=== PATIENT | female | born 1970 | race Caucasian/White ===

== ENCOUNTER 2016-11-23 20:43 | Emergency (ER) | payer OTHER ==
--- NOTE | 2016-11-23 22:08 | EDM.PDOC ---
ED HPI GENERAL MEDICAL PROBLEM - General Chief Complaint: General Stated Complaint: PT HAS INSOMNIA Time Seen by Provider: 11/23/16 22:03 Source of Information: Reports: Patient History Limitations: Reports: No limitations - History of Present Illness INITIAL COMMENTS - FREE TEXT/NARRATIVE: HISTORY AND PHYSICAL: [] 46-year-old female presenting with concerns patient feels that she may have "worms" she went to the walk-in clinic today he was given a "hat" to obtain stool sample but worried that she's not been able to go. She does have a preop hysteroscopy with Dr. Charles. She has not slept in the last 5 days. History of Present Illness: [ This and has been feeling unwell for some time but states that she is normally a happy person] Review of Systems: As per history of present illness and below otherwise all systems reviewed and negative. Past medical history: As per history of present illness and as reviewed below otherwise noncontributory. Surgical history: As per history of present illness and as reviewed below otherwise noncontributory. Social history: No reported history of drug or alcohol abuse. Family history: As per history of present illness and as reviewed below otherwise noncontributory. Physical exam:Alert female with a flat affect she looks quite tired . HEENT: Atraumatic, normocehpalic, pupils reactive, negative for conjunctival pallor or scleral icterus, mucous membranes moist, throat clear, neck supple, nontender, trachea midline. Lungs: Clear to auscultation, breath sounds equal bilaterally, chest non tender. Heart: S1S2, regular, negative for clicks, rubs, or JVD. Abdomen: Soft, nondistended, tender to palpation of the uterus no rebound and no guarding was noted. Negative for masses or hepatossplenmegaly. Negative for costovertebral tenderness.Abdominal bowel sounds were present . Extremities: Atraumatic, negative for cords or calf pain. Neurovascular unremarkable. No peripheral edema is present. Neuro: Awake, alert, oriented. Cranial nerves II through XII unremarkable. Cerebellum unremarkable. Motor and sensory unremarkable throughout. Exam nonfocal. Diagnostics: [] Therapeutics: [] Impression: [ #1 insomnia #2 worried] Plan: [ Tylenol PM 2 tablets tonight to help you sleep Scott's wort available [id number] per bottle directions Followup as scheduled May use magnesium citrate half a bottle to aid in bowel movement] Definitive disposition and diagnosis as appropriate pending reevaluation and review of above. upper back pain Pain Score (Numeric/FACES): 2 - Related Data Allergies Allergy/AdvReac Type Severity Reaction Status Date / Time cephalexin monohydrate Allergy Anaphylactic Verified 11/23/16 21:03 [From Keflex] Shock Cephalosporins Allergy Anaphylactic Verified 11/23/16 21:03 Shock etanercept [From Enbrel] Allergy Rash Verified 11/23/16 21:03 latex Allergy Rash Verified 11/23/16 21:03 Home Meds: Home Meds Adalimumab [Humira Pen [id number] Starter] 1 injection IM ASDIRECTED 11/16/16 [ History] Ibuprofen 2 tab PO ASDIRECTED PRN 11/16/16 [History] Mild Excedrin 1 tab PO ASDIRECTED PRN 11/16/16 [History] Multivitamin [Multivitamins] 1 tab PO DAILY 11/16/16 [History] diphenhydrAMINE [Benadryl] 1 tab PO TID PRN 11/16/16 [History] Past Medical History HEENT History: Reports: None Cardiovascular History: Reports: Hypertension Other Cardiovascular History: mild HTN, not on medication Respiratory History: Reports: Asthma, Other (see below) Other Respiratory History: asthma as a child Gastrointestinal History: Reports: None Genitourinary History: Reports: None 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: , Spontaneous Musculoskeletal History: Reports: Arthritis Other Musculoskeletal History: psoriatic arthritis (severe stage 8) Neurological History: Reports: None Psychiatric History: Reports: None Endocrine/Metabolic History: Reports: Obesity/BMI 30+ Other Endocrine/Metabolic History: prediabetic, borderline hypothyroidism Hematologic History: Reports: None Dermatologic History: Reports: Psoriasis - Infectious Disease History Infectious Disease History: Reports: None - Past Surgical History Head Surgeries/Procedures: Reports: None HEENT Surgical History: Reports: Tonsillectomy Female Surgical History: Reports: D&C Social & Family History - Family History Family Medical History: Noncontributory Endocrine/Metabolic: Reports: Diabetes, type I Oncologic: Reports: Breast, Renal - Tobacco Use Smoking Status *Q: Never Smoker Second Hand Smoke Exposure: No - Caffeine Use Caffeine Use: Reports: Tea - Recreational Drug Use Recreational Drug Use: No Drug Use in Last 12 Months: No ED ROS GENERAL - Review of Systems Review Of Systems: ROS reveals no pertinent complaints other than HPI. ED EXAM, GENERAL - Physical Exam Exam: See Below (see dictation) Course - Vital Signs Last Recorded V/S: Last Vital Signs Temp 36.1 C 11/23/16 21:03 Pulse 86 11/23/16 21:03 Resp 16 11/23/16 21:03 BP 132/78 11/23/16 21:03 Pulse Ox 98 11/23/16 21:03 Departure - Departure Time of Disposition: 22:09 Disposition: Home, Self-Care 01 Condition: good Clinical Impression: Insomnia Forms: ED Department Discharge Additional Instructions: The following information is given to patients seen in the emergency department who are being discharged to home. This information is to outline your options for follow-up care. We provide all patients seen in our emergency department with a follow-up referral. The need for follow-up, as well as the timing and circumstances, are variable depending upon the specifics of your emergency department visit. If you don't have a primary care physician on staff, we will provide you with a referral. We always advise you to contact your personal physician following an emergency department visit to inform them of the circumstance of the visit and for follow-up with them and/or the need for any referrals to a consulting specialist. The emergency department will also refer you to a specialist when appropriate. This referral assures that you have the opportunity for followup care with a specialist. All of these measure are taken in an effort to provide you with optimal care, which includes your followup. Under all circumstances we always encourage you to contact your private physician who remains a resource for coordinating your care. When calling for followup care, please make the office aware that this follow-up is from your recent emergency room visit. If for any reason you are refused follow-up, please contact the [facility] emergency department at and asked to speak to the emergency department charge nurse. Use Tylenol PM tonight to help sleep Magnesium citrate half a bottle to help have bowel movement
[2016-11-23 22:45] VITALS: BP 130/78
== END 2016-11-23 22:19 | disposition home or self-care (01) ==
LOC: MW.ED 20:43
DX: G47.00 Insomnia, unspecified (principal); I10 Essential (primary) hypertension; Z88.0 Allergy status to penicillin; Z88.6 Allergy status to analgesic agent; Z88.8 Allergy status to other drugs, medicaments and biological substances; Z91.040 Latex allergy status
CPT/HCPCS: 93005; 99282; 99283-25

== ENCOUNTER 2018-10-25 13:11 | Emergency (ER) | payer OTHER ==
--- NOTE | 2018-10-25 13:29 | EDM.PDOC ---
ED HPI GENERAL MEDICAL PROBLEM - General Chief Complaint: General Stated Complaint: HIGH BP Time Seen by Provider: 10/25/18 13:28 Source of Information: Reports: Patient History Limitations: Reports: No Limitations - History of Present Illness INITIAL COMMENTS - FREE TEXT/NARRATIVE: HISTORY AND PHYSICAL: History of present illness: Patient is a 48-year-old female here with complaint of high blood pressure. She states she has not been feeling well for the past week, has been taking her blood pressure and it has been all over the place. She states this morning it was 150/106 which prompted her to come to the ED. She states she has had a headache for the past week. She does have a history of headaches and this is not new or worse than her usual. She states she recently started her period which she hasn't had in a few months and thinks her headache could be from the hormonal changes. She denies chest pain or shortness of breath. No past history of hypertension, diabetes, hyperlipidemia. Blood pressure on arrival is 137/98. Review of systems: As per history of present illness and below otherwise all systems reviewed and negative. Past medical history: As per history of present illness and as reviewed below otherwise noncontributory. Surgical history: As per history of present illness and as reviewed below otherwise noncontributory. Social history: No reported history of drug or alcohol abuse. Family history: As per history of present illness and as reviewed below otherwise noncontributory. Physical exam: General: Patient sitting comfortably in no acute distress and nontoxic appearing HEENT: Atraumatic, normocephalic, pupils reactive, negative for conjunctival pallor or scleral icterus, mucous membranes moist, throat clear, neck supple, nontender, trachea midline. No meningeal signs. Lungs: Clear to auscultation, breath sounds equal bilaterally, chest nontender. Heart: S1S2, regular, negative for clicks, rubs, or overt murmur. Abdomen: Soft, nondistended, nontender. Negative for masses or hepatosplenomegaly. Negative for costovertebral tenderness. Pelvis: Stable nontender. Genitourinary: Deferred. Rectal: Deferred. Extremities: Atraumatic, negative for cords or calf pain. Neurovascular unremarkable. Neuro: Awake, alert, oriented. Cranial nerves II through XII unremarkable. Cerebellum unremarkable. Motor and sensory unremarkable throughout. Exam nonfocal. Notes: Diagnostics: CBC, CMP, Troponin, EKG Therapeutics: Toradol 60mg IM Prescriptions: None Impression: Hypertension, hyperlipidemia Plan: 1. Follow up with primary care provider with blood pressure log as instructed 2. Return to ED as needed as discussed Definitive disposition and diagnosis as appropriate pending reevaluation and review of above. Head Pain Score (Numeric/FACES): 8 - Related Data Allergies Allergy/AdvReac Type Severity Reaction Status Date / Time cephalexin monohydrate Allergy Anaphylactic Verified 10/25/18 13:19 [From Keflex] Shock Cephalosporins Allergy Anaphylactic Verified 10/25/18 13:19 Shock etanercept [From Enbrel] Allergy Rash Verified 10/25/18 13:19 latex Allergy Rash Verified 10/25/18 13:19 Home Meds: Home Meds . 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: , Spontaneous Musculoskeletal History: Reports: Arthritis Other Musculoskeletal History: psoriatic arthritis (severe stage 8) Neurological History: Reports: None Psychiatric History: Reports: None Endocrine/Metabolic History: Reports: Obesity/BMI 30+ Other Endocrine/Metabolic History: borderline hypothyroidism Hematologic History: Reports: None Dermatologic History: Reports: Psoriasis - Infectious Disease History Infectious Disease History: Reports: Chicken Pox - Past Surgical History Head Surgeries/Procedures: Reports: None HEENT Surgical History: Reports: Tonsillectomy Female Surgical History: Reports: D&C Social & Family History - Family History Family Medical History: Noncontributory Endocrine/Metabolic: Reports: Diabetes, Type I Oncologic: Reports: Breast, Renal - Tobacco Use Smoking Status *Q: Never Smoker - Caffeine Use Caffeine Use: Reports: Energy Drinks - Recreational Drug Use Recreational Drug Use: No ED ROS GENERAL - Review of Systems Review Of Systems: ROS reveals no pertinent complaints other than HPI. ED EXAM, GENERAL - Physical Exam Exam: See Below (see dictation) Course - Vital Signs Last Recorded V/S: Last Vital Signs Temp 97.5 F 10/25/18 13:20 Pulse 78 10/25/18 13:20 Resp 16 10/25/18 13:20 BP 137/98 H 10/25/18 13:20 Pulse Ox 97 10/25/18 13:20 - Orders/Labs/Meds Orders: Active Orders 24 hr Category Date Time Status EKG Documentation Completion [RC] STAT Care 10/25/18 13:39 Active Labs: Laboratory Tests 10/25/18 10/25/18 Range/Units 13:50 13:50 WBC 5.73 (4.0-11.0) K/uL RBC 4.72 (4.30-5.90) M/uL Hgb 13.8 (12.0-16.0) g/dL Hct 39.9 (36.0-46.0) % MCV 84.5 (80.0-98.0) fL MCH 29.2 (27.0-32.0) pg MCHC 34.6 (31.0-37.0) g/dL RDW Std Deviation 39.0 (28.0-62.0) fl RDW Coeff of Maggi 13 (11.0-15.0) % Plt Count 231 (150-400) K/uL MPV 9.30 (7.40-12.00) fL Neut % (Auto) 62.3 (48.0-80.0) % Lymph % (Auto) 27.6 (16.0-40.0) % [place] % (Auto) 7.2 (0.0-15.0) % Eos % (Auto) 2.6 (0.0-7.0) % Baso % (Auto) 0.3 (0.0-1.5) % Neut # (Auto) 3.6 (1.4-5.7) K/uL Lymph # (Auto) 1.6 (0.6-2.4) K/uL [place] # (Auto) 0.4 (0.0-0.8) K/uL Eos # (Auto) 0.2 (0.0-0.7) K/uL Baso # (Auto) 0.0 (0.0-0.1) K/uL Nucleated RBC % 0.0 /100WBC Nucleated RBCs # 0 K/uL Sodium 136 (136-145) mmol/L Potassium 3.9 (3.5-5.1) mmol/L Chloride 101 (98-107) mmol/L Carbon Dioxide 27.3 (21.0-32.0) mmol/L BUN 11 (7.0-18.0) mg/dL Creatinine 0.7 (0.6-1.0) mg/dL Est Cr Clr Drug Dosing 92.01 mL/min Estimated GFR (MDRD) > 60.0 ml/min Glucose 98 (74-106) mg/dL Calcium 10.1 (8.5-10.1) mg/dL Total Bilirubin 0.5 (0.2-1.0) mg/dL AST 20 (15-37) IU/L ALT 25 (14-63) IU/L Alkaline Phosphatase 70 (46-116) U/L Troponin I < 0.050 (0.000-0.056) ng/mL Total Protein 8.4 H (6.4-8.2) g/dL Albumin 4.0 (3.4-5.0) g/dL Globulin 4.4 H (2.6-4.0) g/dL Albumin/Globulin Ratio 0.9 (0.9-1.6) Meds: Medications Discontinued Medications Generic Name Dose Route Start Last Admin Trade Name Freq PRN Reason Stop Dose Admin Ketorolac Tromethamine 60 mg 10/25/18 13:41 10/25/18 13:56 Toradol IM 10/25/18 13:42 60 mg ONETIME ONE Administration Departure - Departure Time of Disposition: 14:36 Disposition: Home, Self-Care 01 Condition: Good Clinical Impression: Hypertension, Hyperlipidemia - Discharge Information Referrals: PCP,Unknown [Primary Care Provider] - Forms: ED Department Discharge Additional Instructions: The following information is given to patients seen in the emergency department who are being discharged to home. This information is to outline your options for follow-up care. We provide all patients seen in our emergency department with a follow-up referral. The need for follow-up, as well as the timing and circumstances, are variable depending upon the specifics of your emergency department visit. If you don't have a primary care physician on staff, we will provide you with a referral. We always advise you to contact your personal physician following an emergency department visit to inform them of the circumstance of the visit and for follow-up with them and/or the need for any referrals to a consulting specialist. The emergency department will also refer you to a specialist when appropriate. This referral assures that you have the opportunity for follow-up care with a specialist. All of these measure are taken in an effort to provide you with optimal care, which includes your follow-up. Under all circumstances we always encourage you to contact your private physician who remains a resource for coordinating your care. When calling for follow-up care, please make the office aware that this follow-up is from your recent emergency room visit. If for any reason you are refused follow-up, please contact the [facility] Emergency Department at and asked to speak to the emergency department charge nurse. [facility] [address] [place] [address] 1. Follow up with primary care provider with blood pressure log as instructed 2. Return to ED as needed as discussed - My Orders Last 24 Hours: My Active Orders 10/25/18 13:39 EKG Documentation Completion [RC] STAT - Assessment/Plan Last 24 Hours: My Active Orders 10/25/18 13:39 EKG Documentation Completion [RC] STAT
[2018-10-25] MEDS ORDERED: Ketorolac 60 MG/2 ML SDV IM ONE (13:41)
[2018-10-25 14:30] LABS: CHLORIDE,CL 101 mmol/L (98-107); SODIUM,NA 136 mmol/L (136-145)
[2018-10-25 14:48] VITALS: BP 144/91
== END 2018-10-25 14:48 | disposition home or self-care (01) ==
LOC: MW.ED 13:11
DX: I10 Essential (primary) hypertension (principal); E78.5 Hyperlipidemia, unspecified; Z88.1 Allergy status to other antibiotic agents; Z91.040 Latex allergy status
CPT/HCPCS: 36415; 80053; 84484; 85025; 93005; 96372; 99284; J1885; 99283